=== PATIENT | female | born 1960 | race Caucasian/White ===

== ENCOUNTER 2021-01-30 15:53 | Emergency (ER) | payer MEDICARE, MEDICAID ==
--- NOTE | 2021-01-30 17:05 | EDM.PDOC ---
ED HPI GENERAL MEDICAL PROBLEM - General Chief Complaint: General Stated Complaint: SEVERE CONSTIPATION/ABD PAIN Time Seen by Provider: 01/30/21 16:20 Source of Information: Reports: Family (Sister) History Limitations: Reports: Other (Down's syndrome) - History of Present Illness INITIAL COMMENTS - FREE TEXT/NARRATIVE: 60-year-old female with Down syndrome presents to the emergency room with her sister who is her guardian with complaints of at least 2-week history of constipation. Patient was a resident at an assisted living in [facility]. She was taken to [facility] in [place] and x-rays revealed that she was constipated. They initially tried milk of magnesia without relief. She has had a follow-up appointment and was given mag citrate x2 with still persistent abdominal complaints. Sister had reported that she was on 4 different medications for depression and has always had history of diarrhea while on these medications. Since these medications have been discontinued she has since been constipated. They are somewhat frustrated with her care and therefore present to the emergency room in [facility] for further work-up and evaluation. She has had some stools mostly have been loose per her sister's report the last couple of days. She is only had one small formed BM. She has not had any recent illnesses or fever or chills. Her only complaint is her belly is sore. Lab work per sister has been unremarkable. Her UA has been clean. Her x-rays of the abdomen have been reported to the patient and sister that she is full of stool. She has not had a CT scan. The sister who is the guardian is wanting us to proceed with that today. On exam clinically she looks to be nontoxic-appearing. She is mildly had tearful more in the perspective that she does not want her sister to leave her and is scared. She is pleasant and cooperative, follows with movements and commands. Onset: Gradual Duration: Week(s):, Constant Location: Reports: Abdomen Quality: Reports: Ache Severity: Moderate Improves with: Reports: None Worsens with: Reports: None Associated Symptoms: Reports: No Other Symptoms. Denies: Nausea/Vomiting Abdomen Pain Score (Numeric/FACES): 10 - Related Data Allergies Allergy/AdvReac Type Severity Reaction Status Date / Time Serotonin 5HT-3 Antagonists Allergy Cannot Verified 01/30/21 16:56 Remember Home Meds: Home Meds L.acidoph,Paracasei, B.lactis [Probiotic] 1 each PO DAILY 01/30/21 [History] Multivitamin 1 each PO DAILY 01/30/21 [History] Social & Family History - Tobacco Use Tobacco Use Status *Q: Never Tobacco User - Caffeine Use Caffeine Use: Reports: None - Recreational Drug Use Recreational Drug Use: No ED ROS GENERAL - Review of Systems Review Of Systems: Unable To Obtain Reason Not Obtained: Patient is unable to give, Down syndrome ED EXAM, GENERAL - Physical Exam Exam: See Below Exam Limited By: Physical Impairment General Appearance: Alert, WD/WN, Anxious, Mild Distress Nose: Normal Inspection Throat/Mouth: Normal Inspection, No Airway Compromise Head: Atraumatic, Normocephalic Neck: Normal Inspection Respiratory/Chest: No Respiratory Distress, Lungs Clear, Normal Breath Sounds Cardiovascular: Regular Rate, Rhythm GI/Abdominal: Soft, Non-Tender, No Distention, No Mass, Abnormal Bowel Sounds (Hypoactive). No: Guarding, Rigid, Rebound Back Exam: Normal Inspection Extremities: Normal Inspection Neurological: Alert, Oriented Psychiatric: Anxious, Tearful Skin Exam: Warm, Dry, Intact, Normal Color, No Rash Lymphatic: No Adenopathy Course - Vital Signs Last Recorded V/S: Last Vital Signs Temp 97.6 F 01/30/21 16:00 Pulse 78 01/30/21 16:00 Resp 20 01/30/21 16:00 BP 138/59 L 01/30/21 16:00 Pulse Ox 94 L 01/30/21 16:00 - Orders/Labs/Meds Orders: Active Orders 24 hr Category Date Time Status Abdomen Pelvis w Cont [CT] Stat Exams 01/30/21 16:32 Ordered UA RFX TERESITA AND CULT IF INDIC [URIN] Stat Lab 01/30/21 16:32 Ordered Labs: Laboratory Tests 01/30/21 01/30/21 Range/Units 16:46 16:46 WBC 6.51 (5.00-10.00) 10^3/uL RBC 4.25 (3.80-5.50) 10^6/uL Hgb 13.6 (12.0-16.0) g/dL Hct 43.6 (37.0-47.0) % MCV 102.6 H (82.0-92.0) fL MCH 32.0 H (27.0-31.0) pg MCHC 31.2 L (32.0-36.0) g/dL RDW 12.5 (11.5-14.5) % Plt Count 286 (150-400) 10^3/uL MPV 9.8 (7.4-10.4) fL Immature Gran % (Auto) 0.5 (0.0-5.0) % Neut % (Auto) 67.1 (50.0-70.0) % Lymph % (Auto) 26.4 (20.0-40.0) % [place] % (Auto) 5.8 (2.0-8.0) % Eos % (Auto) 0.0 L (1.0-3.0) % Baso % (Auto) 0.2 (0.0-1.0) % Neut # (Auto) 4.37 (2.50-7.00) 10^3/uL Lymph # (Auto) 1.72 (1.00-4.00) 10^3/uL [place] # (Auto) 0.38 (0.10-0.80) 10^3/uL Eos # (Auto) 0.00 L (0.10-0.30) 10^3/uL Baso # (Auto) 0.01 (0.00-0.10) 10^3/uL Immature Gran # (Auto) 0.03 (0.00-0.50) 10^3/uL Sodium 142 (136-145) mmol/L Potassium 4.7 (3.5-5.1) mmol/L Chloride 101 (98-107) mmol/L Carbon Dioxide 33.5 H (21.0-32.0) mmol/L Anion Gap 12.2 (5-15) mmol/L BUN 12 (7-18) mg/dL Creatinine 0.91 (0.51-1.17) mg/dL Est Cr Clr Drug Dosing 55.35 mL/min Estimated GFR (MDRD) > 60 mL/min Glucose 97 (70-140) mg/dL Calcium 8.8 (8.7-10.3) mg/dL Total Bilirubin 0.3 (0.2-1.0) mg/dL AST 23 (15-37) U/L ALT 17 (14-63) U/L Alkaline Phosphatase 78 (46-116) U/L Total Protein 8.0 (6.4-8.2) g/dL Albumin 2.87 L (3.40-5.00) g/dL - Radiology Interpretation Free Text/Narrative:: CT scan abdomen pelvis with IV contrast Comparison study: None Findings: Small hiatal hernia. The gallbladder is surgically absent. The liver, spleen, pancreas, and adrenal glands and kidneys are unremarkable. No bowel obstruction or inflammation. Colonic diverticulosis without evidence of acute diverticulitis. Moderate amount of retained stool within the colon. No lymphadenopathy, free fluid, or pneumoperitoneum. Scattered changes of spondylosis of the spine. Old healed fractures of the pubic symphysis. Impression: Small fat-containing ventral hernia with associated stranding small amount of free fluid. Moderate amount of retained stool within the colon. - Re-Assessments/Exams Free Text/Narrative Re-Assessment/Exam: 01/30/21 18:29 Patient was given fleets enema. Senna S, and magnesium citrate. Departure - Departure Time of Disposition: 19:00 Disposition: Home, Self-Care 01 Condition: Good Clinical Impression: Constipation by delayed colonic transit Retained feces Qualifiers: Constipation type: slow transit constipation Qualified Code(s): K59.01 - Slow transit constipation - Discharge Information Referrals: Kayleigh Okeefe MD [Primary Care Provider] - Forms: ED Department Discharge Sepsis Event Note (ED) - Evaluation Sepsis Screening Result: No Definite Risk - Focused Exam Vital Signs: Vital Signs Temp Pulse Resp BP Pulse Ox 01/30/21 16:00 97.6 F 78 20 138/59 L 94 L - My Orders Last 24 Hours: My Active Orders 01/30/21 16:32 Abdomen Pelvis w Cont [CT] Stat UA RFX TERESITA AND CULT IF INDIC [URIN] Stat - Assessment/Plan Last 24 Hours: My Active Orders 01/30/21 16:32 Abdomen Pelvis w Cont [CT] Stat UA RFX TERESITA AND CULT IF INDIC [URIN] Stat Assessment:: Constipation, moderate amount of retained stool within the colon Plan: 1. Patient was given fleets enema tonight. She is to drink 150 mL of mag citrate 1 time additional prescription to be repeated if not successful in 24 hours will be given. Patient is given Senokot S to p.o. twice a day until constipation relief occurs. She was given 2 Senokot-S tonight as well. 2. I recommend following up with your primary care Dr. Justin Mattson on your scheduled appointment February 10. 3. Your lab work looks unremarkable. Your urine was clean. CT scan findings showed a moderate amount of retained stool within the colon.
[2021-01-30 17:11] LABS: ANION GAP 12.2 mmol/L (5-15); CHLORIDE,CL 101 mmol/L (98-107); SODIUM,NA 142 mmol/L (136-145)
--- NOTE | 2021-01-30 18:09 | CT ---
[id number] CT/CT Abdomen Pelvis W IV EXAM: CT Abdomen Pelvis W IV CLINICAL DATA: ABDOMINAL PAIN,CONSTIPATION. COMPARISON STUDY: None. FINDINGS: Small hiatal hernia. The gallbladder is surgically absent. The liver, spleen, pancreas, adrenal glands and kidneys are unremarkable. No bowel obstruction or inflammation. Colonic diverticulosis without evidence of acute diverticulitis. Moderate amount of retained stool within the colon. No lymphadenopathy, free fluid, or pneumoperitoneum. Scattered changes of spondylosis the spine. Old healed fractures of the pubic symphysis. IMPRESSION: 1. Small fat-containing ventral hernia with associated stranding a small amount of free fluid. 2. Moderate amount of retained stool within the colon. German Wallace DO 01/30/21 1802 Thank you for allowing us to participate in the care of your patient.
[2021-01-30] MEDS ORDERED: Sodium Phosphate,Monobasic/Sodium Phosphate,Dibasic Enema 133 ML Bottle RECTAL ONE (18:20)
[2021-01-30] MEDS ORDERED: Magnesium Citrate Solution 296 ML Bottle PO ONE (18:21)
== END 2021-01-30 19:05 | disposition home or self-care (01) ==
LOC: KA.ED 15:53
DX: K59.01 Slow transit constipation (principal); Z88.8 Allergy status to other drugs, medicaments and biological substances
CPT/HCPCS: 36415; 74177; 80053; 85025; 99284; A9270